=== PATIENT | male | born 1995 | race American Indian/Alaskan Native ===

== ENCOUNTER → 2023-08-10 08:37 | Outpatient (REF) | payer BC, SELFPAY ==
[2023-08-10 10:11] LABS: % Basophils 0.7 % (0-2); % Eosinophils 1.8 % (0-6); % Immature Granulocytes 0.3 % (0-0.5); % Lymphocytes 24.8 % (20.5-51.1); % Neutrophils 66.4 % (42.2-75.2); Absolute Eosinophils 0.1 10^3/uL (0-0.7); Absolute Lymphocytes 1.5 10^3/uL (1.2-3.4); Absolute Monocytes 0.4 10^3/uL (0.1-0.6); Hematocrit 44.4 % (39.0-52.0); Hemoglobin 15.3 g/dL (13.0-18.0); Mean Corp Hgb Conc. 34.5 g/dL (33.0-37.0); Mean Corpuscular Volume 87.1 fL (80.0-94.0); Mean Platelet Volume 9.6 fL (7.4-10.4); Nucleated Red Blood Cells % 0 % (-); Platelet Count 314 10^3/uL (130-400); Red Cell Dist. Width 11.9 % (11.5-14.5)
[2023-08-10 10:28] LABS: ALT (SGPT) 14 U/L (0-50); AST (SGOT) 26 U/L (17-59); Albumin 4.7 g/dl (3.5-5.0); Alkaline Phosphatase 78 U/L (38-126); Blood Urea Nitrogen 15 mg/dl (9-20); Calcium 10.2 mg/dl (8.4-10.2); Carbon Dioxide 26 mmol/L (22-30); Chloride 101 mmol/L (98-107); Glucose 98 mg/dl (70-99); HDL Cholesterol 48 mg/dl; LDL Cholesterol, Calculated 99 mg/dl; Potassium 4.4 mmol/L (3.5-5.1); Sodium 138 mmol/L (135-145); Total Bilirubin 0.8 mg/dl (0.2-1.3); Total Cholesterol 169 mg/dl (50-199); Total Protein 7.6 g/dl (6.3-8.2); Triglyceride 113 mg/dl (10-149); Very Low Density Lipoprotein 22 mg/dl (0-30); eGFR > 60.00
== END ==
LOC: HWLAB 08:37
PROVIDERS: ATTENDING PHYSICIAN Family Medicine
DX: Z87.19 Personal history of other diseases of the digestive system (principal); Z86.11 Personal history of tuberculosis; Z13.220 Encounter for screening for lipoid disorders; Z00.00 Encounter for general adult medical examination without abnormal findings
CPT/HCPCS: 36415; 80053; 80061; 85025

== ENCOUNTER → 2023-08-10 21:00 | Outpatient (REF) | payer BC, SELFPAY | LOC: DHSLP 21:00 | PROVIDERS: ATTENDING PHYSICIAN Family Medicine | DX: G47.33 Obstructive sleep apnea (adult) (pediatric) (principal); R06.83 Snoring; R40.0 Somnolence; R53.83 Other fatigue | CPT/HCPCS: 95800 ==

== ENCOUNTER → 2024-02-03 10:16 | Outpatient (REF) | payer BC, SELFPAY ==
[2024-02-05 17:54] LABS: Quantiferon Mitogen minus NIL 9.97 IU/mL; Quantiferon NIL 0.04 IU/mL; Quantiferon Plus TB1 minus NIL 0.15 IU/mL (<=0.34); Quantiferon Plus TB2 minus NIL 0.08 IU/mL (<=0.34); Quantiferon TB Gold Plus Negative (Negative)
== END ==
LOC: HWLAB 10:16
PROVIDERS: ATTENDING PHYSICIAN Nurse Practitioner; FAMILY PHYSICIAN Family Medicine
DX: Z23 Encounter for immunization (principal)
CPT/HCPCS: 36415; 86480

== ENCOUNTER → 2024-03-14 14:33 | Outpatient (REF) | payer BC, SELFPAY ==
[2024-03-14 15:53] LABS: Erythrocyte Sed Rate 13 mm/hour (0-20)
[2024-03-14 15:56] LABS: IgA 215 mg/dl (70-400)
[2024-03-14 16:17] LABS: TSH Reflex To Free T4 0.75 uIU/ml (0.47-4.68)
[2024-03-16 11:35] LABS: H. pylori Breath Test Negative (Negative)
[2024-03-16 13:03] LABS: tTG IgA Antibody 9.5 EU/ml (0-19); tTG IgG Antibody 12.2 EU/ml (0-19)
[2024-03-16 22:11] LABS: Endomysial IgA Antibody Titer <1:10 (<1:10)
== END ==
LOC: REG 14:33
PROVIDERS: ATTENDING PHYSICIAN Internal Medicine
DX: K58.0 Irritable bowel syndrome with diarrhea (principal)
CPT/HCPCS: 36415; 82784; 83013; 83516; 84443; 85652; 86140; 86231

== ENCOUNTER → 2024-03-31 07:27 | Outpatient (REF) | payer BC, SELFPAY | LOC: HWRAD 07:27 | PROVIDERS: ATTENDING PHYSICIAN Internal Medicine; FAMILY PHYSICIAN Family Medicine | DX: R16.1 Splenomegaly, not elsewhere classified (principal) | CPT/HCPCS: 76700 ==

== ENCOUNTER 2024-06-16 06:11 | Day surgery (SDC) | payer BC, SELFPAY | END 2024-06-16 09:03 | disposition home or self-care (01) | LOC: GI 06:11 | PROVIDERS: ATTENDING PHYSICIAN Internal Medicine | DX: K92.1 Melena (principal); K64.8 Other hemorrhoids | CPT/HCPCS: 45378 ==

== ENCOUNTER → 2024-08-05 10:32 | Outpatient (REF) | payer BC, SELFPAY ==
[2024-08-05 11:28] LABS: % Basophils 0.5 % (0-2); % Eosinophils 1.3 % (0-6); % Immature Granulocytes 0.2 % (0-0.5); % Monocytes 5.7 % (1.7-9.3); % Neutrophils 67.3 % (42.2-75.2); Absolute Eosinophils 0.1 10^3/uL (0-0.7); Absolute Lymphocytes 1.5 10^3/uL (1.2-3.4); Absolute Monocytes 0.3 10^3/uL (0.1-0.6); Hematocrit 45.4 % (39.0-52.0); Hemoglobin 15.6 g/dL (13.0-18.0); Mean Corp Hgb Conc. 34.4 g/dL (33.0-37.0); Mean Corpuscular Hgb 29.9 pg (27.0-31.0); Mean Platelet Volume 8.8 fL (7.4-10.4); Nucleated Red Blood Cells % 0 % (-); Platelet Count 306 10^3/uL (130-400); Red Blood Cell Count 5.22 10^6/uL (4.70-6.10); Red Cell Dist. Width 11.9 % (11.5-14.5)
[2024-08-05 11:52] LABS: ALT (SGPT) 13 U/L (0-50); AST (SGOT) 25 U/L (17-59); Albumin 4.5 g/dl (3.5-5.0); Alkaline Phosphatase 62 U/L (38-126); Blood Urea Nitrogen 13 mg/dl (9-20); Calcium 9.9 mg/dl (8.4-10.2); Carbon Dioxide 28 mmol/L (22-30); Chloride 104 mmol/L (98-107); Glucose 92 mg/dl (70-99); HDL Cholesterol 46 mg/dl; LDL Cholesterol, Calculated 99 mg/dl; Sodium 140 mmol/L (135-145); Total Bilirubin 1.2 mg/dl (0.2-1.3); Total Cholesterol 167 mg/dl (50-199); Total Protein 7.5 g/dl (6.3-8.2); Triglyceride 111 mg/dl (10-149); Very Low Density Lipoprotein 22 mg/dl (0-30); eGFR > 60.00
== END ==
LOC: REG 10:32
PROVIDERS: ATTENDING PHYSICIAN Family Medicine
DX: Z00.00 Encounter for general adult medical examination without abnormal findings (principal); F32.1 Major depressive disorder, single episode, moderate
CPT/HCPCS: 36415; 80053; 80061; 85025